=== PATIENT | male | born 1970 | race Caucasian/White ===

== ENCOUNTER 2016-06-30 15:24 | Emergency (ER) | payer BC ==
[~2016-06-30] VITALS: Ht 177.8 cm; Wt 74.0 kg
[2016-06-30 15:35] VITALS: Ht 177.8 cm; Wt 74.0 kg
[2016-06-30] MEDS ORDERED: NO ROUTINE MEDS (15:43)
[2016-06-30] MEDS ORDERED: NAPR220T61 PO (15:44)
--- NOTE | 2016-06-30 16:00 | NUR ---
PHYSICIAN IN TO EXAMINE PATIENT. RECTAL EXAM PERFORMED AT THIS TIME
[2016-06-30 16:27] LABS: EOSINOPHILS # (AUTO) 0.1 T/MM3 (0-0.5); EOSINOPHILS % (AUTO) 1.1 % (0-4); HCT - HEMATOCRIT 46.4 % (41-53); HGB - HEMOGLOBIN 16.2 GM/DL (13.5-17.5); IMMATURE GRANULOCYTE # (AUTO) 0.02 T/MM3 (0.00-0.03); IMMATURE GRANULOCYTE % (AUTO) 0.4 % (0.0-0.5); LYMPHOCYTES # (AUTO) 1.1 T/MM3 (1-4.8); LYMPHOCYTES % (AUTO) 23.9 % (23-45); MEAN CORPUSCULAR HGB 29.3 UUG (26-34); MEAN CORPUSCULAR HGB CONC(MCHC 34.9 GM/DL (31-37); MEAN CORPUSCULAR VOLUME 83.9 UM3 (80-100); MEAN PLATELET VOLUME 8.9 UM3 (9.4-12.4); MONOCYTES # (AUTO) 0.4 T/MM3 (0-0.8); MONOCYTES % (AUTO) 8.5 % (0-9.0); NEUTROPHILS #(AUTO)-ABSOLUTE 3.1 T/MM3 (1.8-7.7); NEUTROPHILS % (AUTO) 66.1 % (33-66); RED BLOOD COUNT 5.53 M/MM3 (4.50-5.90); WBC - WHITE BLOOD COUNT 4.7 T/MM3 (4.5-11.0)
--- NOTE | 2016-06-30 16:32 | ERPDOC ---
Departure Disposition Decision Date: June 30, 2016 Disposition Decision Time: 17:55 Disposition: 01 DISCHARGED HOME, SELF-CARE Impression Impression Impression: Primary Impression: Acute hemorrhoid Severity: Mild Condition: Improved Seen By: Physician only Referrals: [facility] 2 Days Patient Instructions: Hemorrhoids (ED) Problems/Meds/Labs Reviewed?: Yes Medications reviewed and manag: Yes Follow up care ordered?: Yes Mental Status: Alert, Oriented Scripts Hydrocortisone (Anusol-Hc) 30 Gm Cream..g. 1 APPLIC TOP BID for 7 Days, #30 GM 1 Refill Prov: LAVELLE YANES DO 06/30/16 HPI - General Medical General Chief Complaint: GI Bleed Stated Complaint: BLOODY STOOLS Time Seen by Provider: 15:59 Source: patient Exam Limitations: no limitations HPI - General Medical Initial Comments 45-year-old male presents to the emergency department with a chief complaint of a single episode of hard stool that did have a small amount of bright red blood covering the stool. Patient noted onset of symptoms immediately prior to arrival to the emergency department. Patient has been having large hard bowel movements since Wednesday. Patient currently denies any pain or discomfort but does note some very mild lower abdominal cramping without radiation.. No trauma , travel, poorly prepared foods or recent antibiotic use. No other complaints or associated symptoms. Patient is not anticoagulated. Occurred At: home Onset: other (1 episode. ) Allergies: Coded Allergies: NKDA (Verified Allergy, Unknown, 06/30/16) Past History Past Medical History Pt denies signifigant PMH Surgical History Denies Surgeries Family History Family History: Negative Social History Smoking Status: Never smoker Substance Use Type: does not use Alcohol Intake: occasionally Review of Systems Constitutional Constitutional: DENIES: chills, fever Eyes General: DENIES: erythema, exudate Lids/Accessories: DENIES: erythema, swelling Vision: DENIES: acuity, blurring ENMT Ears: DENIES: drainage, erythema Hearing: DENIES: hearing loss Balance: DENIES: ataxia, falling to one side Sinuses: DENIES: congestion, pain Nose: DENIES: nosebleeds, pain Mouth/Throat: DENIES: painful swallowing, sore throat Teeth: DENIES: pain Jaw: DENIES: pain Cardiovascular Cardiac: DENIES: chest pain, dyspnea on exertion Rhythm/Rate: DENIES: irregular beat, palpitations Vascular: DENIES: pedal edema, unilateral swelling Pulmonary Respiratory: DENIES: cough, dyspnea, pleuritic chest pain, sputum GI Upper Abdomen: DENIES: nausea, pain, vomiting Lower Abdomen: blood in stool, painful BM, DENIES: diarrhea, pain General: DENIES: burning, dysuria, frequency, urgency Musculoskeletal General: DENIES: joint pain, tenderness Integumentary Skin: DENIES: itching, rash Neurological General: DENIES: headache, numbness, weakness Psychiatric Psychiatric: DENIES: emotional instability, suicidal ideation/attempt Endocrine Endocrine: DENIES: polydipsia, polyphagia Hematologic/Lymphatic Hematologic/Lymphatic: DENIES: frequent nosebleeds, lymphadenopathy Allergic/Immunological Allergic/Immunoligical: DENIES: allergic reactions, hives Physical Exam General General Nourishment: well nourished, well developed, appears stated age, no acute distress, adult General Body Habitus: well groomed Vitals and Pain First Documented Vital Signs Date Time Temp Pulse Resp B/P Pulse Ox O2 Delivery O2 Flow Rate FiO2 06/30/16 15:35 97.0 83 16 123/89 95 Room Air Weight: Kilograms: 74.000 Height (feet): 5 Height (inches): 10.00 Triage Pain Scale: RN VS reviewed by Provider: Yes Normal Exams: Head: Normocephalic w/o trauma Eyes: Pupils are PERRLA w/ EOMI, No scleral icterus, irritation, or foreign bodies noted ENMT: No facial trauma, nasal exudates, pharyngeal erythema, or exudates are noted Dental: No fractured, loose, or missing teeth noted Neck: Full range of motion, without adenopathy, JVD, bruits or thyromegaly Chest/Resp: Clear all shabazz, with good airflow, and symmetry bilaterally CV: Regular rate and rhythm, without murmur or gallop, Pulses 2+ all extremities, capillary refill, <2 seconds all ext., no pedal edema noted Abdomen: Bowel sounds positive, soft, non-tender, non-distended, no hepatosplenomegaly, masses or bruits noted Lymphatic: No lymphadenopathy, or lymphedema noted Musculoskeletal: No tenderness, or deformity noted, good range of motion, all extremities Integumentary: No rashes, hives, or bruising noted, hair and nails, without abnormality Neurologic: Patient is alert, and oriented, cranial nerves, motor/sensory/ cerebellar, exams w/o gross deficits, to observation Psychiatric: Patient exhibits, appropriate attention, emotion and affect Abdomen (brief) Comments Rectal exam is unremarkable with a small palpable non-thrombosed hemorrhoid at approximately 6:00. Differential Diagnoses Considering: Metabolic, Other (hemorrhoids/diverticulitis/rectal bleeding) Progress Results/Orders Orders Procedure Category Date Status Time Cbc W/Auto LAB 06/30/16 Complete Diff-Reflex Manual Cmp - Comprehensive LAB 06/30/16 Complete Metabolic Lipase LAB 06/30/16 Complete Ua, Dip Wreflex LAB 06/30/16 Complete Microsc & Breakfast Hostess 16:06 INR LAB 06/30/16 Complete PTT LAB 06/30/16 Complete Lactate - Lactic Acid LAB 06/30/16 Complete Lactate - Lactic Acid LAB 06/30/16 Logged 20:36 Iv Lock (Ed Only) EDM 06/30/16 Transmitted 16:24 Normal Saline (Ns) PHA 06/30/16 Complete 16:45 Cta Abdomen/Pelvis CT 06/30/16 Logged W/Wo Cont. Iohexol (Omnipaque) PHA 06/30/16 Complete 17:03 Normal Saline (Ns) PHA 06/30/16 Complete 17:03 Saline Flush (Iv PHA 06/30/16 Complete Flush) 17:03 Lab Results Laboratory Tests Test 06/30/16 16:21 06/30/16 17:10 White Blood Count 4.7T/MM3 Red Blood Count 5.53M/MM3 Hemoglobin 16.2GM/DL Hematocrit 46.4% Mean Corpuscular Volume 83.9UM3 Mean Corpuscular Hemoglobin 29.3UUG Mean Corpuscular Hemoglobin Concent 34.9GM/DL RDW Standard Deviation 38.8FL Platelet Count 261T/MM3 Mean Platelet Volume 8.9UM3 Immature Granulocyte % (Auto) 0.4% Neutrophils (%) (Auto) 66.1% Lymphocytes (%) (Auto) 23.9% Monocytes (%) (Auto) 8.5% Eosinophils (%) (Auto) 1.1% Basophils (%) (Auto) 0.0% Absolute Immature Granulocyte (auto 0.02T/MM3 Absolute Neutrophils (auto) 3.1T/MM3 Absolute Lymphocytes (auto) 1.1T/MM3 Absolute Monocytes (auto) 0.4T/MM3 Absolute Eosinophils (auto) 0.1T/MM3 Absolute Basophils (auto) 0.0T/MM3 Prothromb Time International Ratio 0.96 Activated Partial Thromboplast Time 28.7SEC Turbidity < 20 Sodium Level 147MEQ/L Potassium Level 4.3MEQ/L Chloride Level 106MEQ/L Carbon Dioxide Level 28MEQ/L Anion Gap 13MEQ/L Blood Urea Nitrogen 14.0MG/DL Creatinine 0.8MG/DL Glomerular Filtration Rate Calc 105 BUN/Creatinine Ratio 18RATIO Glucose Level 97MG/DL Calculated Osmolality 283MOSM/KG Calcium Level 9.3MG/DL Total Bilirubin 0.90MG/DL Icterus Index < 2 Aspartate Amino Transf (AST/SGOT) 32U/L Alanine Aminotransferase (ALT/SGPT) 53U/L Alkaline Phosphatase 76U/L Total Protein 7.8G/DL Albumin 4.6G/DL Globulin 3.2G/DL Albumin/Globulin Ratio 1.4RATIO Lipase 70U/L Plasma Lactate 0.7MMOL/L Chemistry Specimen Hemolysis 50 Urine Collection Type Cleancatch-midstream Urine Color Yellow Urine Turbidity Sl cloudy Urine pH 6.0 Urine Specific [place] >=1.030 Urine Protein Trace Urine Glucose (UA) Negative Urine Ketones Negative Urine Blood Negative Urine Nitrite Negative Urine Bilirubin Negative Urine Urobilinogen 0.2EU/DL Urine Leukocyte Esterase Negative Urinalysis Comment Microscopic not ind. Medications Current ED Medications Sodium Chloride (NS) 500 ml @ 999 mls/hr Q31M ONCE IV Last administered on t 16:43; Start 06/30/16 at 16:45; Stop 06/30/16 at 17:15; Status DC Iohexol 1 bottle 1 bottle STK-MED ONCE .ROUTE ; Start 06/30/16 at 17:03; Stop at 17:04; Status DC Sodium Chloride (NS) 100 ml @ As Directed STK-MED ONCE .ROUTE ; Start 06/30/16 at 17:03; Stop 06/30/16 at 17:04; Status DC Sodium Chloride (Iv Flush) 10 ml STK-MED ONCE .ROUTE ; Start 06/30/16 at 17:03; Stop 06/30/16 at 17:04; Status DC Progress Progress Labs / imaging were discussed in detail with the patient and questions are answered. Patient is given gentle IV hydration. Patient declines offered analgesic pain medication in the emergency department. Patient has an unremarkable laboratory evaluation. Patient has a normal CT scan of the abdomen and pelvis. Normal lactic acid. Patient will be treated for the acute hemorrhoid noted on physical examination. Prescription for Anusol HC will be provided. Patient is in agreement with the current plan of management. Patient is discharged home in improved condition. patient is to follow up as instructed. Patient is to return to the emergency department if his condition worsens or changes in any manner. Patient is in agreement with the current plan of management. CT CT : CT: Abd/Pelvis IV contrast Interpretation: Normal, Faxed Report LAVELLE YANES DO June 30, 2016 16:32
[2016-06-30 16:35] LABS: INR 0.96 (0.76-1.04); PROTHROMBIN TIME 10.5 SEC (9.31-12.49); PTT 28.7 SEC (24-36)
[2016-06-30 16:36] LABS: ALBUMIN 4.6 G/DL (3.5-5.0); ALBUMIN/GLOBULIN RATIO 1.4 RATIO (1.1-2.2); ALKALINE PHOSPHATASE 76 U/L (38-126); ALT (SGPT) 53 U/L (21-72); ANION GAP 13 MEQ/L (5-15); AST (SGOT) 32 U/L (17-59); BUN/CREATININE RATIO 18 RATIO (6-26); CALCIUM 9.3 MG/DL (8.4-10.2); CHLORIDE 106 MEQ/L (98-107); CO2 - CARBON DIOXIDE 28 MEQ/L (22-30); CREATININE 0.8 MG/DL (0.8-1.5); GLOMERULAR FILTRATION RATE 105; GLUCOSE 97 MG/DL (75-110); LIPASE 70 U/L (23-300); POTASSIUM 4.3 MEQ/L (3.6-5); SODIUM 147 MEQ/L (134-144); TOTAL PROTEIN 7.8 G/DL (6.3-8.2)
[2016-06-30 16:37] LABS: LACTATE - LACTIC ACID 0.7 MMOL/L (0.6-2.2)
[2016-06-30] MEDS ORDERED: NORMAL SALINE 500 ML IV ONE (16:45)
[2016-06-30] MEDS ORDERED: SALINE FLUSH 10ml SYRINGE ONE (17:03)
[2016-06-30] MEDS ORDERED: NORMAL SALINE 100 ML ONE (17:03)
[2016-06-30] MEDS ORDERED: IOHEXOL 350 MG/ML 100ml INJECTION ONE (17:03)
[2016-06-30 17:13] LABS: BLOOD, URINE NEGATIVE (NEGATIVE); COLOR,URINE YELLOW (YELLOW); LEUKOCYTE ESTERASE ,URINE NEGATIVE (NEGATIVE); NITRITE,URINE NEGATIVE (NEGATIVE); UROBILINOGEN,URINE 0.2 EU/DL (NORMAL)
--- NOTE | 2016-06-30 17:35 | NUR ---
RETURNED FROM CT
--- NOTE | 2016-06-30 17:59 | NUR ---
REPORT RECIEVED REPORT FROM ANGELES JOHNSON
[2016-06-30] MEDS ORDERED: HYDR30CR79 TOP (18:00)
[2016-06-30 18:08] VITALS: BP 125/85; PULSE 80; RESP 18; TEMP 98.1; O2SAT 99
--- NOTE | 2016-06-30 18:10 | NUR ---
DEPART PT IS GIVEN DISMISSAL INSTRUCTIONS WITH VERBAL UNDERSTANDING. PT LEAVES AMBULATORY WITH FAMILY. SCRIPT X1 IS GIVEN TO PT
--- NOTE | 2016-07-01 08:29 | DI ---
Indication: ITS.REASON lower abdominal pain with cramping and rectal bleeding PROCEDURE: CTA ABDOMEN/PELVIS W/WO CONT.: Encounter: Initial Comparison: None Technique: Axial CT angiography of abdomen and pelvis performed before and after the administration of intravenous contrast. Coronal and sagittal MIP reconstructed images were created and reviewed along with three-dimensional surface shaded volume rendered imaging of the abdominal arterial vasculature which was created by the technologist on a dedicated workstation under the direction of the interpreting radiologist and reviewed. Automated Exposure Control and Iterative Reconstruction dose reducing techniques were utilized. Contrast: Omnipaque 350 100mL Findings: The lung bases are clear. Noncontrast imaging shows no significant atherosclerotic plaque present in the arterial vasculature. Postcontrast imaging shows a normal caliber to the aorta without evidence of aneurysm or dissection. The celiac, SMA and JESSICA origins are widely patent as are the renal arteries. The common, internal and external iliac arteries also appear normal without evidence of aneurysm or occlusion. No stenosis. No evidence of arterial extravasation. The bladder, prostate and rectum are grossly normal. No free fluid. No evidence of bowel obstruction. The arterial phase liver, spleen, gallbladder, pancreas, adrenal glands and kidneys are within normal limits. Bone windows are within normal limits. Impression: No acute disease process seen. There is a preliminary report by [employer]. .
== END 2016-06-30 18:10 | disposition home or self-care (01) ==
LOC: ED 15:24
DX: K64.9 Unspecified hemorrhoids (principal)
CPT/HCPCS: 36415; 74174; 80053; 81003; 83605; 83690; 85025; 85610; 85730; 96360; 99284; J7050; Q9967